=== PATIENT | female | born 2000 | race Caucasian/White ===

== ENCOUNTER 2018-07-31 19:00 | Emergency (ER) | payer SELFPAY ==
[2018-07-31] MEDS: guaiFENesin 100 MG/5 ML Soln 5 ML UD Cup PO ONE (19:43)
[2018-07-31] MEDS: diphenhydrAMINE 25 MG Cap PO ONE (19:43)
--- NOTE | 2018-07-31 19:47 | EDM.PDOC ---
ED HPI GENERAL MEDICAL PROBLEM - General Chief Complaint: General Stated Complaint: POSSIBLE FLU?? Time Seen by Provider: 07/31/18 19:38 Source of Information: Reports: Patient History Limitations: Reports: No Limitations - History of Present Illness INITIAL COMMENTS - FREE TEXT/NARRATIVE: She is a 17 old female who presents to the emergency department this evening with a complaint of upper respiratory symptoms. Patient states symptoms been going on for 3 or 4 days, cough, nasal congestion and a runny nose. Patient denies fever, out of country travel, chest pain, shortness of breath, or using any [id number]-giv-aaweuby cold medicine. Onset: Gradual Duration: Day(s): Severity: Mild Improves with: Reports: None Worsens with: Reports: None Associated Symptoms: Reports: Cough. Denies: cough w sputum, Fever/Chills, Nausea/Vomiting, Shortness of Breath - Related Data Allergies Allergy/AdvReac Type Severity Reaction Status Date / Time Sulfa (Sulfonamide Allergy Rash Verified 06/05/18 18:32 Antibiotics) Home Meds: Home Meds Oseltamivir [Tamiflu] 75 mg PO BID #10 cap 07/31/18 [Rx] Past Medical History Musculoskeletal History: Reports: Fracture Psychiatric History: Reports: Anxiety, Depression - Past Surgical History HEENT Surgical History: Reports: Adenoidectomy, Tonsillectomy Social & Family History - Tobacco Use Smoking Status *Q: Current Some Day Smoker ED ROS GENERAL - Review of Systems Review Of Systems: ROS reveals no pertinent complaints other than HPI. Constitutional: Reports: No Symptoms HEENT: Reports: No Symptoms Respiratory: Reports: Cough Cardiovascular: Reports: No Symptoms Endocrine: Reports: No Symptoms GI/Abdominal: Reports: No Symptoms : Reports: No Symptoms Musculoskeletal: Reports: No Symptoms Skin: Reports: No Symptoms Neurological: Reports: No Symptoms Psychiatric: Reports: No Symptoms Hematologic/Lymphatic: Reports: No Symptoms Immunologic: Reports: No Symptoms ED EXAM, GENERAL - Physical Exam Exam: See Below Exam Limited By: No Limitations General Appearance: Alert, WD/WN, No Apparent Distress Eye Exam: Bilateral Eye: Normal Inspection Ears: Normal External Exam, Normal Canal, Normal TMs Nose: No Blood, Clear Rhinorrhea Throat/Mouth: Normal Inspection, Normal Oropharynx, No Airway Compromise Head: Atraumatic, Normocephalic Neck: Normal Inspection, Supple. No: Lymphadenopathy (L), Lymphadenopathy (R) Respiratory/Chest: No Respiratory Distress, Lungs Clear, Normal Breath Sounds, No Accessory Muscle Use, Chest Non-Tender Cardiovascular: No Murmur, Tachycardia GI/Abdominal: Normal Bowel Sounds, Soft, Non-Tender Extremities: Normal Inspection Neurological: Alert, Oriented, Normal Cognition Psychiatric: Normal Affect, Normal Mood Skin Exam: Warm, Dry, Intact, Normal Color, No Rash Lymphatic: No Adenopathy Course - Vital Signs Last Recorded V/S: Last Vital Signs Temp 98.9 F 07/31/18 19:09 Pulse 122 H 07/31/18 19:09 Resp 16 07/31/18 19:09 BP 126/71 07/31/18 19:09 Pulse Ox 98 07/31/18 19:09 - Orders/Labs/Meds Meds: Medications Discontinued Medications Generic Name Dose Route Start Last Admin Trade Name Freq PRN Reason Stop Dose Admin Diphenhydramine HCl 25 mg 07/31/18 19:39 07/31/18 19:43 Benadryl PO 07/31/18 19:40 25 mg ONETIME ONE Administration Guaifenesin 100 mg 07/31/18 19:39 07/31/18 19:43 Robitussin PO 07/31/18 19:40 100 mg ONETIME ONE Administration Oseltamivir Phosphate 75 mg 07/31/18 19:45 07/31/18 19:48 Tamiflu PO 07/31/18 19:46 75 mg ONETIME ONE Administration - Re-Assessments/Exams Free Text/Narrative Re-Assessment/Exam: 07/31/18 19:48 Patient afebrile, vital signs stable. Benadryl, Robitussin, and Tamiflu given in ER. Prescription for Tamiflu given Departure - Departure Time of Disposition: 19:49 Disposition: Home, Self-Care 01 Condition: Good Clinical Impression: Influenza A - Discharge Information Prescriptions: Oseltamivir [Tamiflu] 75 mg PO BID #10 cap Instructions: Viral Respiratory Infection, Gnee-Ls-Ruik, Influenza, Adult, Easy -to-Read, Cough, Adult, [id number] Referrals: PCP,Not In Area [Primary Care Provider] - Forms: ED Department Discharge, ED Department Discharge Additional Instructions: Follow-up with your primary care provider in next 1-2 days. Return to emergency department sooner if symptoms continue or worsen - Assessment/Plan Assessment:: Influenza A Plan: Follow-up with PCP in one to 2 days
[2018-07-31] MEDS: Oseltamivir 75 MG Cap PO ONE (19:48)
== END 2018-07-31 19:55 | disposition home or self-care (01) ==
LOC: KA.ED 19:00
DX: J10.1 Influenza due to other identified influenza virus with other respiratory manifestations (principal); F41.9 Anxiety disorder, unspecified; F32.9 Major depressive disorder, single episode, unspecified; F17.200 Nicotine dependence, unspecified, uncomplicated; Z88.2 Allergy status to sulfonamides
CPT/HCPCS: 87804; 99283; A9270-GY